=== PATIENT | male | born 1970 | race Two or more races ===

== ENCOUNTER 2017-02-28 12:35 | Day surgery (SDC) | payer OTHER ==
[2017-02-28 11:50] VITALS: BMI 23.1
[2017-02-28] MEDS ORDERED: LIDOCAINE HCL/PF 2% SDV 5ML VIAL ONE (13:13)
[2017-02-28] MEDS ORDERED: PROPOFOL 20 ML ONE ×2 (13:13)
[2017-02-28 14:02] VITALS: TEMP 98.5
[2017-02-28 14:38] VITALS: BP 150/79; PULSE 79
--- NOTE | 2017-03-02 15:54 | PATH ---
Surgical Pathology Report Patient Name: ESMER KING [facility]. Rec. #: [id number] /Age/Gender: 1970 (Age: 46) / M Account: [id number] Location: U-ENDOSCOPY Taken: 02/28/2017 Received: 03/01/2017 Reported: 03/02/2017 Physicians: Shravan Cooper M.D. Specimen(s) Received A: BX RECTUM B: BX SIGMOID Clinical History Rectal bleeding, history of ulcerative colitis Mild to moderate ulcerative colitis Final Diagnosis A. RECTUM, BIOPSY: RECTAL MUCOSA WITH ACTIVE MILD CHRONIC PROCTITIS WITH FOCAL CRYPTITIS, FOCAL SURFACE EROSION AND MILD CRYPT ALTERATION. NO EVIDENCE OF GRANULOMATA OR DYSPLASIA. B. COLON, SIGMOID, BIOPSY: COLONIC MUCOSA WITH FOCAL MILD ACTIVE INFLAMMATION AND FOCAL MILD CRYPT ALTERATION. NO EVIDENCE OF GRANULOMATA OR DYSPLASIA. Comment: The histologic changes are compatible with idiopathic bowel disease. Electronically Signed Orlando Lang M.D. Gross Description A. Received in formalin, labeled "biopsy rectum" is a alonso, irregular portion of soft tissue measuring 0.3 cm in greatest dimension. The specimen is submitted in toto in one cassette. B. Received in formalin, labeled "biopsy sigmoid" is a alonso, irregular portion of soft tissue measuring 0.3 cm in greatest dimension. The specimen is submitted in toto in one cassette. /03/01/201703/01/2017
== END 2017-02-28 14:46 | disposition home or self-care (01) ==
LOC: JASU-ENDO 12:35
PROVIDERS: ATTEND Internal Medicine Gastroenterology
PROC: 0DBN8ZX Excision of Sigmoid Colon, Via Natural or Artificial Opening Endoscopic, Diagnostic (ICD-10-PCS; principal; 2017-02-28 15:00)
DX: K51.20 Ulcerative (chronic) proctitis without complications (principal); K64.8 Other hemorrhoids
CPT/HCPCS: 88305-TC